=== PATIENT | male | born 1960 | race African-American/Black ===

== ENCOUNTER 2018-07-08 12:29 | Inpatient (IN) | payer MEDICARE, MEDICAID ==
[~2018-07-08] VITALS: Ht 193 cm; Wt 89.8 kg
[2018-07-08 22:53] VITALS: BP 129/66
[2018-07-08 23:00] VITALS: BP 130/66
[2018-07-08] MEDS ORDERED: HAL5 PO ×2 (23:33→23:40)
[2018-07-08] MEDS ORDERED: RALT400T PO (23:33)
[2018-07-08] MEDS ORDERED: BENZ1TAB7 PO (23:40)
[2018-07-08] MEDS ORDERED: ASPI-1159 PO (23:40)
[2018-07-08] MEDS ORDERED: AMLO10TA4 PO (23:40)
[2018-07-08] MEDS ORDERED: ATEN50TA PO (23:40)
[2018-07-08] MEDS ORDERED: IBUP-1649 PO (23:40)
[2018-07-08] MEDS ORDERED: SERT100T PO (23:40)
[2018-07-09] VITALS: BP 107/44
[2018-07-09] MEDS ORDERED: ACETAMINOPHEN 325MG TABLET PO PRN
[2018-07-09 00:46] LABS: BASOPHILS % 0.4 % (0.0-2.0); EOSINOPHILS % 1.5 % (0.0-5.0); HEMOGLOBIN. 13.9 g/dL (14.0-18.0); LYMPHOCYTES % 18.6 % (20.0-50.0); MEAN CORPUSCULAR HEMOGLOBIN 25.8 pg (28.0-32.0); MEAN CORPUSCULAR VOLUME 78.2 fL (80.0-94.0); MEAN PLATELET VOLUME 6.4 fl (7.4-10.4); MONOCYTES % 7.9 % (2.0-8.0); NEUTROPHILS % 71.6 % (40.0-76.0); PLATELET 280 x1000/uL (130-400); RED BLOOD CELL COUNT 5.37 mill/uL (4.7-6.1); RED CELL DISTRIBUTION WIDTH 14.3 % (11.6-14.6)
[2018-07-09 00:50] LABS: CHLORIDE 103 mEq/L (98-107)
[2018-07-09 00:53] LABS: D-DIMER 0.22 mg/L FEU (<0.50)
[2018-07-09] MEDS: BENZTROPINE MESYLATE 1MG TABLET PO SCH ×2 (01:30→21:04)
[2018-07-09] MEDS: HALOPERIDOL 5MG TABLET PO SCH ×2 (02:00→21:04)
[2018-07-09 04:00] VITALS: BP 107/47
[2018-07-09] MEDS ORDERED: MELA5TAB3 PO (04:35)
[2018-07-09] MEDS ORDERED: BRIM10DR16 OP (04:40)
[2018-07-09] MEDS ORDERED: SODI100047 PO (04:41)
[2018-07-09] MEDS ORDERED: ALBU18HF2 IH (04:43)
[2018-07-09] MEDS ORDERED: LAM2 PO (04:44)
[2018-07-09] MEDS ORDERED: MOM PO (04:46)
[2018-07-09 08:00] VITALS: BP 140/79
[2018-07-09] MEDS ORDERED: PNEUMOCOCCAL 23-VAL P-SAC VAC 0.5 ML IM ONE (08:00)
[2018-07-09] MEDS: ALBUTEROL (0.083%) 2.5MG/3ML NEB HHN SCH ×3 (08:27→20:54)
[2018-07-09] MEDS: FUROSEMIDE 40MG/4ML VIAL IVP SCH (08:57)
[2018-07-09] MEDS ORDERED: INFLUENZA VIRUS VACCINE(AFLURIA) 0.5ML SYR IM ONE (10:00)
[2018-07-09] MEDS ORDERED: BRIMONIDINE OP SCH (11:15)
[2018-07-09] MEDS: SERTRALINE HCL 100MG TABLET PO SCH (11:15)
[2018-07-09] MEDS ORDERED: MAGNESIUM HYDROXIDE 400MG/5ML 30ML UDC PO PRN (11:15)
[2018-07-09] MEDS ORDERED: [UNRECOGNIZED DRUG - OTHER] OP SCH (11:15)
[2018-07-09] MEDS: AMLODIPINE 10MG TABLET PO SCH (11:15)
[2018-07-09] MEDS ORDERED: DORZOLAMIDE OP SCH (11:15)
[2018-07-09 12:00] VITALS: BP 120/72
[2018-07-09] MEDS: ATENOLOL 50 MG TABLET PO SCH (12:00)
[2018-07-09] MEDS: ASPIRIN 81MG EC TABLET PO SCH (12:00)
[2018-07-09] MEDS: RALTEGRAVIR 400MG TABLET PO SCH ×2 (13:00→21:05)
[2018-07-09] MEDS: SODIUM CHLORIDE 1000MG TABLET PO SCH ×2 (13:00→21:05)
[2018-07-09] MEDS: BRIMONIDINE 0.2% OPHTH DROPS 5ML BOTHEYE SCH ×2 (13:48→21:06)
[2018-07-09] MEDS: DORZOLAMIDE 2% OPHTH 10 ML BOTTLE BOTHEYE SCH ×2 (13:49→21:06)
[2018-07-09 16:00] VITALS: BP 122/59
[2018-07-09 17:16] LABS: BASOPHILS % 0.8 % (0.0-2.0); EOSINOPHILS % 0.7 % (0.0-5.0); HEMATOCRIT. 43.2 % (42.0-52.0); HEMOGLOBIN. 14.3 g/dL (14.0-18.0); LYMPHOCYTES % 20.1 % (20.0-50.0); MEAN CORPUSCULAR VOLUME 78.6 fL (80.0-94.0); MONOCYTES % 8.1 % (2.0-8.0); NEUTROPHILS % 70.3 % (40.0-76.0); PLATELET 260 x1000/uL (130-400); RED CELL DISTRIBUTION WIDTH 14.8 % (11.6-14.6)
[2018-07-09 17:19] LABS: CHLORIDE 104 mEq/L (98-107)
[2018-07-09 18:23] LABS: T4 FREE 0.98 ng/dL (0.76-1.46)
[2018-07-09 20:00] VITALS: BP 122/59
[2018-07-09] MEDS ORDERED: MEDICATION NOT ON FORMULARY EA (Benztropine Mesylate (Cogentin) 1 MG) PO SCH (21:00)
[2018-07-09] MEDS ORDERED: LAMOTRIGINE 100MG TABLET PO SCH (21:00)
[2018-07-09] MEDS ORDERED: MELATONIN 6 MG PO SCH (21:00)
[2018-07-10] VITALS: BP 105/60
[2018-07-10] MEDS: ALBUTEROL (0.083%) 2.5MG/3ML NEB HHN SCH (02:25)
[2018-07-10 04:00] VITALS: BP 120/60
[2018-07-10] MEDS: BRIMONIDINE 0.2% OPHTH DROPS 5ML BOTHEYE SCH (05:48)
[2018-07-10] MEDS: DORZOLAMIDE 2% OPHTH 10 ML BOTTLE BOTHEYE SCH (05:48)
[2018-07-10 08:00] VITALS: BP 116/76
[2018-07-10] MEDS: FUROSEMIDE 40MG/4ML VIAL IVP SCH (08:58)
[2018-07-10] MEDS: SERTRALINE HCL 100MG TABLET PO SCH (08:58)
[2018-07-10] MEDS: ATENOLOL 50 MG TABLET PO SCH (08:59)
[2018-07-10] MEDS: SODIUM CHLORIDE 1000MG TABLET PO SCH (08:59)
[2018-07-10] MEDS: RALTEGRAVIR 400MG TABLET PO SCH (08:59)
[2018-07-10] MEDS: ASPIRIN 81MG EC TABLET PO SCH (08:59)
[2018-07-10] MEDS: AMLODIPINE 10MG TABLET PO SCH (09:00)
[2018-07-10] MEDS ORDERED: ALBU05 NEB (11:46)
[2018-07-10 12:00] VITALS: BP 114/62
[2018-07-10] MEDS ORDERED: PREDNISONE 20MG TABLET PO SCH (12:00)
[2018-07-10 12:58] VITALS: BP 114/62
== END 2018-07-10 15:31 | DRG 191 ==
LOC: 7WST 12:29
PROVIDERS: ADMIT Family Medicine; ATTEND Family Medicine
DX: J44.1 Chronic obstructive pulmonary disease with (acute) exacerbation (principal); G25.9 Extrapyramidal and movement disorder, unspecified; F17.210 Nicotine dependence, cigarettes, uncomplicated; F20.9 Schizophrenia, unspecified; F31.9 Bipolar disorder, unspecified; I10 Essential (primary) hypertension; Z86.73 Personal history of transient ischemic attack (TIA), and cerebral infarction without residual deficits; Z71.6 Tobacco abuse counseling
CPT/HCPCS: 36415; 71045; 80048; 80061; 83036; 83880; 84439; 84443; 84484; 85379; 87804; 90686; 90732; J1630; J1940; J7512; J7611

== ENCOUNTER 2023-06-30 15:10 | Emergency (ER) | payer MEDICARE, MEDICAID ==
[~2023-06-30] VITALS: Ht 189.2 cm; Wt 91.0 kg
[~2023-06-30 15:10] MED LIST: ALBU05 NEB; AMLO10TA4 PO; ASPI-1497 PO; ATEN50TA PO; BENZ1TAB79 PO; BRIM10DR16 OP; HALO5TAB2 PO; IBUP-2077 PO; LAM2 PO; MELA5TAB3 PO; MOM PO; RALT400T PO; SERT100T PO; SODI100047 PO
[2023-06-30 15:12] VITALS: O2SAT 94
[2023-06-30 16:13] LABS: BASOPHILS % 0.6 % (0.0-2.0); DIFFERENTIAL COMMENT 0; EOSINOPHILS % 2.5 % (0.0-5.0); HEMATOCRIT. 39.6 % (42.0-52.0); HEMOGLOBIN. 13.1 g/dL (14.0-18.0); LYMPHOCYTES % 27.2 % (20.0-50.0); MEAN CORPUSCULAR HEMOGLOBIN 25.1 pg (28.0-32.0); MEAN CORPUSCULAR HGB CONC 33.1 g/dL (31.0-37.0); MEAN CORPUSCULAR VOLUME 75.8 fL (80.0-94.0); MEAN PLATELET VOLUME 6.1 fl (7.4-10.4); NEUTROPHILS % 60.7 % (40.0-76.0); PLATELET 335 x1000/uL (130-400); RED BLOOD CELL COUNT 5.22 mill/uL (4.7-6.1); RED CELL DISTRIBUTION WIDTH 16.8 % (11.6-14.6); WHITE BLOOD COUNT 7.5 x1000/uL (4.5-11.0)
[2023-06-30] MEDS: ONDANSETRON HCL 4MG/2ML INJ IV STA (16:23)
[2023-06-30] MEDS: SODIUM CHLORIDE 0.9% 1,000 ML IV ONE (16:23)
[2023-06-30 16:26] LABS: CHLORIDE 103 mEq/L (98-107); POTASSIUM 3.8 mEq/L (3.5-5.1); SODIUM 138 mEq/L (136-145)
[2023-06-30 16:27] LABS: CARBON DIOXIDE 32 mEq/L (21-32); PROTHROMBIN TIME 11.1 sec (9.6-11.0)
[2023-06-30 16:32] LABS: CREATININE 0.7 mg/dL (0.6-1.3); GLUCOSE 89 mg/dL (70-105)
[2023-06-30 16:33] LABS: UREA NITROGEN BLOOD 5 mg/dL (9-23)
[2023-06-30 16:34] LABS: ALANINE AMINOTRANSFERASE 11 IU/L (10-49); ALBUMIN 3.8 g/dL (3.2-4.8); ASPARTATE AMINOTRANSFERASE 20 IU/L (<34)
[2023-06-30 16:35] LABS: BILIRUBIN TOTAL 0.4 mg/dL (0.1-1.0); PHOSPHORUS 3.5 mg/dL (2.5-4.9); PROTEIN TOTAL 7.7 g/dL (6.0-8.3)
[2023-06-30 17:24] VITALS: BP 122/70; PULSE 80; RESP 15; TEMP 97.7
== END 2023-06-30 18:31 | disposition home or self-care (01) ==
LOC: ER 15:10
DX: R63.4 Abnormal weight loss (principal); R11.2 Nausea with vomiting, unspecified; R19.7 Diarrhea, unspecified; J44.9 Chronic obstructive pulmonary disease, unspecified; I10 Essential (primary) hypertension; Z79.899 Other long term (current) drug therapy
CPT/HCPCS: 99283; 80053; 83690; 83735; 84100; 85025; 85610; 36415; J7030; J2405